=== PATIENT | female | born 1995 | race Hispanic/Latino ===

== ENCOUNTER 2022-08-04 12:57 | Emergency (ER) | payer SELFPAY ==
[2022-08-04 14:05] LABS: Bilirubin Neg (Negative); Blood, Urine 250 (Negative); Glucose, Urine (Dipstick) Normal (Negative); Ketone, Urine 50 mg/dL (Negative); Leukocyte 25 (Negative); Nitrite Negative (Negative); Protein, Urine (Dipstick) Negative (Neg-Trace); Urobilinogen Normal mg/dL (Less than 2)
[2022-08-04 14:16] LABS: #Eosinphils 0.4 10x3/uL (0.0-0.5); #Monocytes 0.6 10x3/uL (0.0-1.1); #Neutrophils 6.9 10x3/uL (1.5-8.4); %Basophils 0.4 % (0.0-2.0); %Eosinophils 3.2 % (0.0-6.0); %Lymphocytes 27.5 % (18.0-47.0); %Monocytes 5.1 % (0.0-10.0); %Neutrophils 63.4 % (40.0-75.0); Hemoglobin 14.1 g/dL (12.0-15.5); Mean Corpuscular HGB CONC 34.8 g/dL (32.0-36.0); Mean Corpuscular Hemoglobin 31.3 pg (27.0-33.0); Platelet Count 328 10x3/uL (150-450); RBC Distribution Width 12.1 % (11.5-14.5); White Blood Cell (WBC) Count 10.8 10x3/uL (3.5-10.5)
[2022-08-04 14:18] LABS: Clarity Cloudy (Clear)
[2022-08-04 14:20] LABS: Bacteria/HPF 2+ HPF (None Seen); Mucous/LPF 1+ LPF (<2+); WBC/HPF 0-3 HPF (0-3)
== END 2022-08-04 16:29 | disposition home or self-care (01) ==
LOC: CSHERS 12:57
DX: O20.0 Threatened abortion (principal); O16.1 Unspecified maternal hypertension, first trimester; Z3A.08 8 weeks gestation of pregnancy
CPT/HCPCS: 36415; 76856; 81003; 81015; 84702; 85025; 86900; 86901

== ENCOUNTER 2022-08-13 11:28 | Emergency (ER) | payer SELFPAY ==
[2022-08-13 12:59] LABS: #Eosinphils 0.4 10x3/uL (0.0-0.5); #Monocytes 0.5 10x3/uL (0.0-1.1); #Neutrophils 5.6 10x3/uL (1.5-8.4); %Basophils 0.5 % (0.0-2.0); %Eosinophils 4.7 % (0.0-6.0); %Lymphocytes 24.7 % (18.0-47.0); %Monocytes 5.8 % (0.0-10.0); Hemoglobin 14.3 g/dL (12.0-15.5); Mean Corpuscular HGB CONC 34.4 g/dL (32.0-36.0); Mean Corpuscular Hemoglobin 31.3 pg (27.0-33.0); Platelet Count 310 10x3/uL (150-450); RBC Distribution Width 12.6 % (11.5-14.5); Red Blood Cell (RBC) Count 4.57 10x6/uL (3.90-5.03); White Blood Cell (WBC) Count 8.7 10x3/uL (3.5-10.5)
[2022-08-13 13:18] LABS: ALT (SGPT) 42 U/L (8-55); AST (SGOT) 27 U/L (5-34); Albumin 3.9 g/dL (3.5-5.0); Alkaline Phosphatase 77 U/L (40-110); Anion Gap 12 mmol/L (10-20); BUN (Urea Nitrogen) 5 mg/dL (7.0-18.7); Bilirubin, Total 0.4 mg/dL (0.2-1.2); Calc. Creatinine Clearance 0 mL/min (70-130); Carbon Dioxide 22 mmol/L (22-29); Chloride 107 mmol/L (98-107); Estimated GFR 124; Globulin 3.3 g/dL (2.4-3.5); Glucose 99 mg/dL (70-105); Protein, Total 7.2 g/dL (6.0-8.3); Sodium 137 mmol/L (136-145)
== END 2022-08-13 13:54 | disposition home or self-care (01) ==
LOC: CSHERS 11:28
DX: O20.0 Threatened abortion (principal); Z3A.01 Less than 8 weeks gestation of pregnancy
CPT/HCPCS: 36415; 76856; 80053; 84702; 85025; 86850; 86900; 86901

== ENCOUNTER 2023-03-02 11:00 | Inpatient (IN) | payer MEDICAID, OTHER ==
[2023-03-02] MEDS ORDERED: Diphenoxylate HCl/Atropine Tablet PO PRN (11:53)
[2023-03-02] MEDS ORDERED: Bicitra 30 ML UDCUP PO PRN (11:53)
[2023-03-02] MEDS ORDERED: Ondansetron PF 4 MG/2 ML Vial IVP PRN ×2 (11:53→16:44)
[2023-03-02] MEDS ORDERED: Misoprostol 200 MCG TAB PR PRN (11:53)
[2023-03-02] MEDS ORDERED: hydrALAZINE 20 MG/ML VIAL SLOW IVP PRN ×3 (11:53)
[2023-03-02] MEDS ORDERED: Tranexamic Acid 1,000 MG/10 ML VIAL IVP PRN (11:53)
[2023-03-02] MEDS ORDERED: Carboprost 250 MCG/ML AMP IM PRN (11:53)
[2023-03-02] MEDS ORDERED: Promethazine HCl 25 MG/ML VIAL IM PRN ×2 (11:53→16:44)
[2023-03-02] MEDS ORDERED: Labetalol HCl 100 MG/20 ML VIAL SLOW IVP PRN ×2 (11:53)
[2023-03-02] MEDS ORDERED: Calcium Gluc 4.6 MEQ/10 ML (100 MG/ML) SLOW IVP PRN (11:53)
[2023-03-02] MEDS ORDERED: Famotidine/PF 20 mg/2ml Vial SLOW IVP PRN (11:53)
[2023-03-02] MEDS ORDERED: Lorazepam 2 MG/ML VIAL SLOW IVP PRN (11:53)
[2023-03-02] MEDS ORDERED: NS w/ Oxytocin 30 units 500 ML IV SCH (12:00)
[2023-03-02 12:08] VITALS: BMI 43.0
[2023-03-02 12:34] LABS: Hematocrit 38.6 % (34.9-44.5); Hemoglobin 13.6 g/dL (12.0-15.5); Mean Corpuscular HGB CONC 35.2 g/dL (32.0-36.0); Mean Corpuscular Hemoglobin 31.5 pg (27.0-33.0); Mean Corpuscular Volume 89.4 fl (81.6-98.3); Mean Platelet Volume 10.4 fl (7.4-10.4); Platelet Count 289 10x3/uL (150-450); RBC Distribution Width 13.3 % (11.5-14.5); Red Blood Cell (RBC) Count 4.32 10x6/uL (3.90-5.03); White Blood Cell (WBC) Count 7.5 10x3/uL (3.5-10.5)
[2023-03-02 12:52] LABS: ALT (SGPT) 14 U/L (8-55); AST (SGOT) 19 U/L (5-34); Albumin 3.1 g/dL (3.5-5.0); Alkaline Phosphatase 573 U/L (40-110); Anion Gap 14 mmol/L (10-20); BUN (Urea Nitrogen) 5 mg/dL (7.0-18.7); Bilirubin, Total 0.4 mg/dL (0.2-1.2); Calc. Creatinine Clearance 273 mL/min (70-130); Calcium 9.3 mg/dL (7.8-10.44); Carbon Dioxide 19 mmol/L (22-29); Chloride 109 mmol/L (98-107); Estimated GFR 128; Glucose 91 mg/dL (70-105); Potassium 4.2 mmol/L (3.5-5.1); Protein, Total 6.1 g/dL (6.0-8.3); Sodium 138 mmol/L (136-145)
[2023-03-02] MEDS ORDERED: CEFAZOLIN 3 GM, Admixture Fee 1 EACH in Sodium Chloride 0.9% 100 ML IVPB SCH (13:00)
[2023-03-02 13:07] LABS: Hep B Surf Ag - L&D Non-Reactive S/CO (NonReactive); Syphilis Antibody Nonreactive (Nonreactive); Syphilis Antibody Index 0.04 S/CO (<1.00 Non-Reactive)
[2023-03-02] MEDS: Magnesium Sulfate 20 gm/500 ml 20 GM/500 ML BAG IVPB SCH ×2 (13:23→22:15)
[2023-03-02] MEDS ORDERED: Ondansetron PF 4 MG/2 ML Vial ONE (15:07)
[2023-03-02] MEDS ORDERED: PHENYLEPHRINE-NS 100 MCG/ML 10 ML SYRINGE ONE (15:07)
[2023-03-02] MEDS ORDERED: Oxytocin 10 UNITS/ML VIAL ONE ×2 (15:07→16:54)
[2023-03-02] MEDS ORDERED: Morphine PF 10 MG/10 ML VIAL ONE (15:07)
[2023-03-02] MEDS ORDERED: ePHEDrine Sulfate 50 MG/10 ML VIAL ONE (15:07)
[2023-03-02] MEDS ORDERED: fentaNYL 50 mcg/mL 1 mL Vial ONE (15:07)
[2023-03-02] MEDS ORDERED: Ketorolac Tromethamine 30 MG/ML VIAL ONE (15:08)
[2023-03-02] MEDS ORDERED: Naloxone HCl 0.4 mg/ml Vial IVP PRN ×2 (16:44)
[2023-03-02] MEDS ORDERED: diphenhydrAMINE 50 MG/ML VIAL IVP PRN (16:44)
[2023-03-02] MEDS ORDERED: L&D-HYDROmorphone 0.5 MG/0.5 ML SYRINGE SLOW IVP PRN (16:44)
[2023-03-02] MEDS ORDERED: Naloxone HCl 0.4 mg/ml Vial IV PRN (16:44)
[2023-03-02] MEDS ORDERED: Moisturizing Cream (Eucerin) 113 GM JAR TOP PRN (16:44)
[2023-03-02] MEDS ORDERED: Meperidine HCl/PF 25 MG/ML VIAL SLOW IVP PRN (16:44)
[2023-03-02] MEDS ORDERED: Ketorolac Tromethamine 30 MG/ML VIAL IVP PRN (16:44)
[2023-03-02] MEDS ORDERED: Promethazine HCl 25 MG SUPP PR PRN (16:44)
[2023-03-02] MEDS ORDERED: Fentanyl 50 MCG/1 ML VIAL SLOW IVP PRN (16:44)
[2023-03-02] MEDS ORDERED: Ondansetron HCl/PF 4 MG/2 ML Vial IVP PRN (16:44)
[2023-03-02] MEDS ORDERED: Ketorolac Tromethamine 30 MG/ML VIAL IVP SCH (16:45)
[2023-03-02] MEDS ORDERED: Communication Order-Pharmacy FS SCH (16:45)
[2023-03-02] MEDS: Lactated Ringer's 1,000 ML IV SCH (20:08)
[2023-03-03] MEDS ORDERED: Promethazine HCl 25 MG/ML VIAL IM PRN (05:02)
[2023-03-03] MEDS ORDERED: Meperidine HCl/PF 25 MG/ML VIAL IM PRN (05:02)
[2023-03-03] MEDS ORDERED: diphenhydrAMINE 25 MG CAP PO PRN (05:02)
[2023-03-03] MEDS ORDERED: Calcium Gluc 4.6 MEQ/10 ML (100 MG/ML) SLOW IVP PRN (05:02)
[2023-03-03] MEDS ORDERED: HYDROcodone/Acetaminophen 5/325 mg Tablet PO PRN (05:02)
[2023-03-03] MEDS ORDERED: Boostrix 0.5 ML (Tdap) VIAL (>/=7 yrs of age) IM ONE (05:02)
[2023-03-03] MEDS ORDERED: Ondansetron PF 4 MG/2 ML Vial IVP PRN (05:02)
[2023-03-03] MEDS ORDERED: Lanolin Ointment 7 GM TUBE TOP PRN (05:02)
[2023-03-03] MEDS ORDERED: Simethicone Chewable 80 MG TAB PO PRN (05:02)
[2023-03-03] MEDS ORDERED: Ketorolac Tromethamine 30 MG/ML VIAL IVP SCH (05:02)
[2023-03-03] MEDS ORDERED: hydrALAZINE 20 MG/ML VIAL SLOW IVP PRN (05:02)
[2023-03-03] MEDS ORDERED: Lorazepam 2 MG/ML VIAL SLOW IVP PRN (05:02)
[2023-03-03] MEDS ORDERED: Bisacodyl 10 MG SUPP PR PRN (05:02)
[2023-03-03] MEDS ORDERED: Labetalol HCl 100 MG/20 ML VIAL SLOW IVP PRN (05:02)
[2023-03-03] MEDS ORDERED: Ferrous Sulfate 325 MG TAB PO SCH (05:30)
[2023-03-03] MEDS ORDERED: Docusate 100 MG CAP PO SCH (05:30)
[2023-03-03] MEDS: Magnesium Sulfate 20 gm/500 ml 20 GM/500 ML BAG IVPB SCH (08:18)
[2023-03-03] MEDS: Ketorolac Tromethamine 30 MG/ML VIAL IVP SCH ×2 (14:13→21:28)
[2023-03-03] MEDS: Prenatal Vitamin 1 TAB PO SCH (14:37)
[2023-03-03] MEDS: HYDROcodone/Acetaminophen 5/325 mg Tablet PO PRN (18:43)
[2023-03-03] MEDS: Ibuprofen 800 MG TAB PO SCH (21:28)
[2023-03-03] MEDS: Ferrous Sulfate 325 MG TAB PO SCH (21:28)
[2023-03-03] MEDS: Docusate 100 MG CAP PO SCH (21:28)
[2023-03-04] MEDS: Ketorolac Tromethamine 30 MG/ML VIAL IVP SCH (03:15)
[2023-03-04 03:55] LABS: Hematocrit 25.8 % (34.9-44.5); Hemoglobin 8.7 g/dL (12.0-15.5); Mean Corpuscular HGB CONC 33.7 g/dL (32.0-36.0); Mean Corpuscular Hemoglobin 31.2 pg (27.0-33.0); Mean Corpuscular Volume 92.5 fl (81.6-98.3); Mean Platelet Volume 9.6 fl (7.4-10.4); Platelet Count 242 10x3/uL (150-450); Red Blood Cell (RBC) Count 2.79 10x6/uL (3.90-5.03)
[2023-03-04] MEDS: HYDROcodone/Acetaminophen 5/325 mg Tablet PO PRN ×4 (04:04→18:09)
[2023-03-04] MEDS: Ibuprofen 800 MG TAB PO SCH ×3 (05:09→21:22)
[2023-03-04] MEDS ORDERED: Lactated Ringer's 1,000 ML IV SCH (08:00)
[2023-03-04] MEDS: NIFEdipine XL 30 MG TAB PO SCH (09:05)
[2023-03-04] MEDS: Prenatal Vitamin 1 TAB PO SCH (09:05)
[2023-03-04] MEDS: Ferrous Sulfate 325 MG TAB PO SCH ×2 (13:29→21:22)
[2023-03-04] MEDS: Docusate 100 MG CAP PO SCH ×2 (13:59→21:21)
[2023-03-04] MEDS: cloNIDine 0.1 MG TAB PO PRN ×2 (13:59→18:03)
[2023-03-05] MEDS: HYDROcodone/Acetaminophen 5/325 mg Tablet PO PRN (01:45)
[2023-03-05] MEDS: Ibuprofen 800 MG TAB PO SCH (08:27)
[2023-03-05] MEDS: Docusate 100 MG CAP PO SCH (08:28)
[2023-03-05] MEDS: Prenatal Vitamin 1 TAB PO SCH (08:28)
[2023-03-05] MEDS: NIFEdipine XL 30 MG TAB PO SCH (08:28)
[2023-03-05] MEDS: Ferrous Sulfate 325 MG TAB PO SCH (08:34)
[2023-03-05 11:16] VITALS: BP 138/92; TEMP 98.4
== END 2023-03-05 14:30 | disposition home or self-care (01) | DRG 788 ==
LOC: CSHLD 11:00 → CSHPP 03-03 18:28
PROVIDERS: ADMIT Family Medicine; ATTEND Family Medicine
PROC: 10D00Z1 Extraction of Products of Conception, Low, Open Approach (ICD-10-PCS; principal; 2023-03-02)
DX: O14.14 Severe pre-eclampsia complicating childbirth (principal); Z3A.37 37 weeks gestation of pregnancy; Z37.0 Single live birth; E66.9 Obesity, unspecified; O34.211 Maternal care for low transverse scar from previous cesarean delivery; O99.214 Obesity complicating childbirth; Z79.899 Other long term (current) drug therapy; Z88.0 Allergy status to penicillin
CPT/HCPCS: 36415; 51702; 80053; 85027; 86780; 86850; 86900; 86901; 87340; J0360; J1885; J2274; J2405; J2590; J3010; J3475; J3490; S0028